=== PATIENT | female | born 1975 ===

== ENCOUNTER 2018-04-26 21:46 | Emergency (ER) | payer BC ==
--- NOTE | 2018-04-26 23:39 | ED ---
Laceration/Wound HPI - HPI Summary HPI Summary: 42-year-old presents with laceration to right arm. States that her dog bite her. her dog is up to date on the immunizations. Her last tetanus is in the last 5 years. she has no medical conditions. No active bleeding. She states she cleaned area with peroxide and soap and water. she states the incident happened a couple hours ago. No other injury. - History of Current Complaint Stated Complaint: DOG BITE Time Seen by Provider: 04/26/18 23:25 Pain Intensity: 4 - Allergy/Home Medications Allergies/Adverse Reactions: Allergies Allergy/AdvReac Type Severity Reaction Status Date / Time No Known Allergies Allergy Verified 04/26/18 21:51 PMH/Surg Hx/FS Hx/Imm Hx Endocrine/Hematology History: Denies: Hx Anticoagulant Therapy Respiratory History: Denies: Hx Asthma Infectious Disease History: No Infectious Disease History: Denies: Traveled Outside the [place] in Last 30 Days - Family History Known Family History: Negative: Diabetes - Social History Alcohol Use: Rare Substance Use Type: Reports: Marijuana Substance Use Comment - Amount & Last Used: daily Smoking Status (MU): Never Smoked Tobacco Review of Systems Negative: Fever Negative: Chest Pain Negative: Shortness Of Breath Positive: Other - dog bite All Other Systems Reviewed And Are Negative: Yes Physical Exam Triage Information Reviewed: Yes Vital Signs On Initial Exam: Initial Vitals Temp Pulse Resp BP Pulse Ox 97.8 F 61 16 122/69 100 04/26/18 21:48 04/26/18 21:48 04/26/18 21:48 04/26/18 21:48 04/26/18 21:48 Vital Signs Reviewed: Yes Appearance: Positive: Well-Appearing Skin: Positive: Warm, Dry, Other - 1cm by 1/2cm laceration to right arm, scratches present, ecchymosis noted to right arm Head/Face: Positive: Normal Head/Face Inspection Eyes: Positive: Normal, Conjunctiva Clear ENT: Positive: Pharynx normal Respiratory/Lung Sounds: Positive: Clear to Auscultation, Breath Sounds Present Cardiovascular: Positive: Normal, RRR Musculoskeletal: Positive: Strength/ROM Intact - right arm Neurological: Positive: Normal Psychiatric: Positive: Normal Diagnostics - Vital Signs Vital Signs Temp Pulse Resp BP Pulse Ox 04/26/18 21:48 97.8 F 61 16 122/69 100 - Laboratory Lab Statement: Any lab studies that have been ordered have been reviewed, and results considered in the medical decision making process. Laceration Repair Course/Dx - Course Course Of Treatment: 42-year-old presents with laceration to right arm. States that her dog bite her. her dog is up to date on the immunizations. Her last tetanus is in the last 5 years. she has no medical conditions. No active bleeding. She states she cleaned area with peroxide and soap and water. she states the incident happened a couple hours ago. No other injury. On exam has a 1 cm superficial laceration to right arm. Told that will not close due to the high-risk infection. Will place on Augmentin. Warned of signs return to ED for. Patient understands and agrees with plan. - Differential Dx Differental Diagnoses: Abrasion, Avulsion, Laceration - Clinical Impression Provider Diagnoses: Dog bite Discharge - Sign-Out/Discharge Documenting (check all that apply): Patient Departure - Discharge Plan Condition: Good Disposition: HOME Prescriptions: Amoxicillin/Clavulanate TAB* [Augmentin TAB 875*] 875 mg PO BID #9 tab Patient Education Materials: Animal Bite (ED) Referrals: Cris Peña MD [Primary Care Provider] - Additional Instructions: Wash area with soap and water twice a day Place Neosporin on area Take augmentin twice a day for 5 days Return to ED if develop any sign of infection such as spreading redness, pus, or fever, or any new or worsening symptoms - Billing Disposition and Condition Condition: GOOD Disposition: Home
[2018-04-26] MEDS ORDERED: Amoxicillin/Clavulanate TAB* 875 MG PO ONE (23:40)
[2018-04-26 23:51] VITALS: BP 135/73
== END 2018-04-26 23:51 | disposition home or self-care (01) ==
LOC: ED 21:46
DX: S41.151A Open bite of right upper arm, initial encounter (principal); W54.0XXA Bitten by dog, initial encounter; Y92.9 Unspecified place or not applicable
CPT/HCPCS: 99282; A9270-GY